=== PATIENT | female | born 2000 | race African-American/Black ===

== ENCOUNTER 2025-03-07 04:41 | Emergency (ER) | payer OTHER, SELFPAY ==
[2025-03-07 04:51] VITALS: BP 124/88
[2025-03-07 05:48] LABS: Hematocrit 33.0 % (37.0-47.0); Hemoglobin 11.7 g/dL (12.0-16.0); Mean Corp Hgb Conc. 35.5 g/dL (33.0-37.0); Mean Corpuscular Volume 81.1 fL (81.0-99.0); Nucleated Red Blood Cells % 0 %; Platelet Count 239 10^3/uL (130-400); Red Cell Dist. Width 12.0 % (11.5-14.5)
[2025-03-07 06:15] LABS: ALT (SGPT) < 10 U/L (0-35); AST (SGOT) 13 U/L (14-36); Albumin 4.5 g/dl (3.5-5.0); Alkaline Phosphatase 58 U/L (38-126); Blood Urea Nitrogen 10 mg/dl (7-17); Calcium 9.3 mg/dl (8.4-10.2); Carbon Dioxide 27 mmol/L (22-30); Chloride 103 mmol/L (98-107); Glucose 86 mg/dl (70-99); Potassium 3.8 mmol/L (3.5-5.1); Sodium 137 mmol/L (135-145); Total Protein 7.5 g/dl (6.3-8.2); eGFR > 60.00
--- NOTE | 2025-03-07 06:17 | ED.GENMED ---
History of Present Illness
<Nixon Nieves, DO - Last Filed: 03/09/25 18:06>
General
Chief Complaint: Chest Pain
Source: patient
Exam Limitations: none
Time Seen by Provider: 03/07/25 04:54
Nursing documentation reviewed up to this point in time: agreed with
History of Present Illness
History of Present Illness:
Note:
CHIEF COMPLAINT(S)
Chest pain and difficulty breathing.
HISTORY OF PRESENT ILLNESS
The patient is a 24-year-old female presenting with persistent chest pain and difficulty breathing. The symptoms began a couple of hours prior to the visit. The patient describes the chest pain as similar to a muscular discomfort but notes it has
not subsided. It intensified when she attempted to go to bed. She experiences the pain as non-reproducible upon palpation of the chest. The patient reports a past episode of similar chest pain that was attributed to heartburn, but denies any
previous instances of such intensity. There is no recent history of illness, and she reports fatigue.
PAST MEDICAL AND SURGICAL HISTORY
The patient mentions having experienced heartburn years ago.
SOCIAL HISTORY
The patient denies smoking, alcohol, and illicit drug use. She reports no stress from work.
FAMILY HISTORY
The mother had some cardiac issues, but specific details are not provided. The patient denies any family history of premature deaths or heart problems in other relatives.
PHYSICAL EXAM
General: Alert, no acute distress.
Skin: Warm, dry.
Head: Normocephalic, atraumatic.
Neck: Supple, trachea midline.
Eye, Ears, Nose, Mouth, Throat: Oral mucosa moist.
Cardiovascular: Normal peripheral perfusion, No edema.
Respiratory: Respirations are non-labored.
Gastrointestinal: Abdomen nondistended.
Back: Normal range of motion, Normal alignment.
Musculoskeletal: Normal ROM, normal strength.
Neurological: Alert and oriented to person, place, time, and situation, No focal neurological deficit observed.
Psychiatric: Cooperative, appropriate mood & affect.
PLAN
The plan includes performing a blood test to assess for the presence of a blood clot. If the test is positive, it may necessitate further testing, specifically a computed tomography (CT) scan of the chest, to evaluate for a pulmonary embolism.
DIFFERENTIAL DIAGNOSIS
The Differential Diagnosis includes, in no particular order and is not limited to:
1. Musculoskeletal pain
2. Costochondritis
3. Gastroesophageal reflux disease (GERD)
4. Pulmonary embolism
5. Myocardial infarction
6. Anxiety or panic attack
7. Pleuritis
8. Pneumothorax
9. Bronchitis
10. Aortic dissection
WELLS' CRITERIA FOR PULMONARY EMBOLISM:
Result Summary
0 points Low Risk for PE & PE Unlikely
Inputs:
Clinical signs and symptoms of DVT -> 0 = No
PE is #1 diagnosis OR equally likely -> 0 = No
Heart rate > 100 -> 0 = No
Immobilization at least 3 days OR surgery in the previous 4 weeks -> 0 = No
Previous, objectively diagnosed PE or DVT -> 0 = No
Hemoptysis -> 0 = No
Malignancy w/ treatment within 6 months or palliative -> 0 = No
CARE-UPDATE
03/07/25 - 06:00
Patient reports a history of similar symptoms attributed to costochondritis. Monitor for recurrence and manage symptoms as per previous treatment plan.
Phy Exam
<Nixon Nieves DO - Last Filed: 03/09/25 18:06>
Physical Exam
Physical Exam:
.
Scores
<Nixon Nieves DO - Last Filed: 03/09/25 18:06>
Heart Score for Chest Pain Patients
STEMI patient?: No
History: Slightly or Non-Suspicious
ECG: Normal
Age: </= 45 years
Risk Factors: No Risk Factors
Troponin: </= Normal Limit
Heart Score for Chest Pain Patients: 0
Heart Score Risk: 2.5% MACE over next 6 weeks
Course
<Nixon Nieves, DO - Last Filed: 03/09/25 18:06>
Orders/Labs/Results
Orders:
Orders
03/07/25 04:42
EKG [Electrocardiogram (*1)] Urgent
Reason for Study: Chest Pain
EKG- Treatment ONCE
03/07/25 04:55
Cardiac Monitoring- Treatment ONCE
EKG- Treatment ONCE
03/07/25 05:39
Complete Blood Count/With Diff Urgent
Comprehensive Metabolic Panel Urgent
D-Dimer Urgent
HCG, Serum Qualitative Screen Urgent
Comment: ADD ON
NT-proBNP Urgent
PTT Urgent
Prothrombin Time Urgent
TSH Urgent
Troponin I Urgent
03/07/25 06:00
Add On- LAB Urgent
Tests Added?: serum hcg
03/07/25 08:34
Ketorolac [Toradol] 15 mg IV NOW STA
CR Chest - 2 Views Urgent
Comment:
Reason For Exam: chest pain
Abnormal Lab Results
03/07/25
05:39
RBC 4.07 L 10^6/uL
(4.20-5.40)
Hgb 11.7 L g/dL
(12.0-16.0)
Hct 33.0 L %
(37.0-47.0)
MPV 10.5 H fL
(7.4-10.4)
Neutrophils % 36.0 L %
(42.2-75.2)
Eosinophils % 7.8 H %
(0-6)
AST 13 L U/L
(14-36)
03/07/25 05:39
03/07/25 05:39
Vital Signs
Initial and Last Documented VS:
Initial Vital Signs
Temp Pulse Resp BP Pulse Ox
97.4 F 74 16 124/88 100
03/07/25 04:51 03/07/25 04:51 03/07/25 04:51 03/07/25 04:51 03/07/25 04:51
Last Documented Vital Signs
Temp Pulse Resp BP Pulse Ox
97.4 F 88 27 114/83 99
03/07/25 04:51 03/07/25 09:00 03/07/25 09:00 03/07/25 09:00 03/07/25 09:00
Julietalt;Nixon Martinez, DO - Last Filed: 03/07/25 09:19>
Orders/Labs/Results
Orders:
Orders
03/07/25 04:42
EKG [Electrocardiogram (*1)] Urgent
Reason for Study: Chest Pain
EKG- Treatment ONCE
03/07/25 04:55
Cardiac Monitoring- Treatment ONCE
EKG- Treatment ONCE
03/07/25 05:39
Complete Blood Count/With Diff Urgent
Comprehensive Metabolic Panel Urgent
D-Dimer Urgent
HCG, Serum Qualitative Screen Urgent
Comment: ADD ON
NT-proBNP Urgent
PTT Urgent
Prothrombin Time Urgent
TSH Urgent
Troponin I Urgent
03/07/25 06:00
Add On- LAB Urgent
Tests Added?: serum hcg
03/07/25 08:34
Ketorolac [Toradol] 15 mg IV NOW STA
CR Chest - 2 Views Urgent
Comment:
Reason For Exam: chest pain
Abnormal Lab Results
03/07/25
05:39
RBC 4.07 L 10^6/uL
(4.20-5.40)
Hgb 11.7 L g/dL
(12.0-16.0)
Hct 33.0 L %
(37.0-47.0)
MPV 10.5 H fL
(7.4-10.4)
Neutrophils % 36.0 L %
(42.2-75.2)
Eosinophils % 7.8 H %
(0-6)
AST 13 L U/L
(14-36)
03/07/25 05:39
03/07/25 05:39
Vital Signs
Initial and Last Documented VS:
Initial Vital Signs
Temp Pulse Resp BP Pulse Ox
97.4 F 74 16 124/88 100
03/07/25 04:51 03/07/25 04:51 03/07/25 04:51 03/07/25 04:51 03/07/25 04:51
Last Documented Vital Signs
Temp Pulse Resp BP Pulse Ox
97.4 F 88 27 114/83 99
03/07/25 04:51 03/07/25 09:00 03/07/25 09:00 03/07/25 09:00 03/07/25 09:00
<Nixon Nieves, DO - Last Filed: 03/09/25 18:06>
*Pulse Oximetry
SaO2: 100
Oxygen Mode of Delivery: Room air
Patient hypoxic: no
*Critical Care Note
Total Time (30-74mins, 75-104mins- exclusive of procedures): Not Applicable
<Nixon Martinez, DO - Last Filed: 03/07/25 09:19>
Update Note
Update Note:
Patient evaluated by Dr. Parekh for anterior chest pain. Labs are all unremarkable. EKG shows no acute ischemic changes.
I reevaluated patient she continues to have some low-level chest discomfort. No shortness of breath.
Lungs are clear and equal bilaterally
Will obtain a chest x-ray. If this is negative patient will be stable for discharge and outpatient follow-up. Will also give a dose of Toradol
ED Attending Note
<Nixon Nieves, - Last Filed: 03/09/25 18:06>
-
Portions of this chart may have been created with voice recognition software.� Occasional wrong word or��sound alike� substitutions may have occurred due to the inherent limitations of voice recognition software.
Discharge Plan
Departure
Patient Disposition: Home (Routine Discharge)
Date of Disposition: 03/07/25
Time of Disposition: 09:19
Patient with high blood pressure during this ER visit?: No
Condition: Good
Discharge Problem:
Chest pain
Instructions: Chest Pain PCP Follow Up
Prescriptions:
No Action
hydroxyzine HCl [Atarax] 10 mg Tablet
10 mg PO DAILY PRN (Reason: anxiety)
escitalopram oxalate [Lexapro] 10 mg Tablet
10 mg PO DAILY
Referrals:
Samira Markham CRNP [Family Provider]
Interventions
Interventions:
*Risk Screen - Suicide Last Done: 03/07/25 04:44
*General Assessment Last Done: 03/07/25 05:43
*Neglect/Abuse Screening Last Done: 03/07/25 05:43
*ED COVID-19 Vaccine History Last Done: 03/07/25 05:43
*ED Influenza Vaccine History Last Done: 03/07/25 05:43
[facility] Fall Risk Assessment Tool Last Done: 03/07/25 05:43
*Nursing Disposition Last Done: 03/07/25 09:55
ED- Cardiac Assessment Last Done: 03/07/25 05:44
Discharge Date and Time
Discharge Date/Time: 03/07/25 10:04
Print Language: AZERI
[2025-03-07 06:20] LABS: HCG, Serum Qualitative Screen Negative
[2025-03-07 06:26] LABS: Troponin I < 0.012 ng/ml
[2025-03-07 06:45] LABS: TSH 3.20 uIU/ml (0.47-4.68)
[2025-03-07 06:53] LABS: INR 1.13; PT 14.3 Sec (11.4-14.6)
[2025-03-07 06:54] LABS: APTT 28.5 Sec (23.4-35.0)
[2025-03-07 06:56] LABS: D-Dimer 0.28 ug/mlFEU (0.00-0.50)
[2025-03-07 07:03] VITALS: BP 117/82
[2025-03-07 08:00] VITALS: BP 112/79
[2025-03-07] MEDS: TORADOL 15 MG IV (08:42)
[2025-03-07 09:00] VITALS: BP 114/83
== END 2025-03-07 10:04 | disposition home or self-care (01) ==
LOC: EMR 04:41
PROVIDERS: EMERGENCY PHYSICIAN Student in an Organized Health Care Education/Training Program; FAMILY PHYSICIAN Nurse Practitioner Primary Care
DX: R07.89 Other chest pain (principal)
CPT/HCPCS: 99283; 96374; 71046; 80053; 83880; 84443; 84484; 84703; 85025; 85379; 85610; 85730; 93005